=== PATIENT | male | born 1970 | race Caucasian/White ===

== ENCOUNTER → 2024-01-29 | Outpatient (CLI) | payer BC ==
--- NOTE | 2024-02-26 10:21 | MR ---
Site ID synapse default Patient Gaudencio Burns ID [id number] Age/Gender: 53Y, M Order # N/A Procedure MRI CSPINE WO CONTRAST Date 01/29/2024 8:48:24 AM EXAMINATION TYPE: MR cervical spine wo con DATE OF EXAM: 02/08/2024 COMPARISON: None HISTORY: Headaches, numbness/tingling in hands TECHNIQUE: Multiplanar, multisequence images of the cervical spine were acquired without contrast. FINDINGS: Alignment: The cervical vertebral bodies have preserved heights. Straightening of the normal cervical lordosis which may be due to patient position versus muscle spasm. No significant spondylolisthesis. Bones: Type II Modic changes involving the inferior endplate of the C6 vertebral body. Remaining bone signal is within normal limits. Multilevel degenerative disc disease is noted. Cord: The spinal cord is unremarkable with regards to their signal intensity and morphology. Discs: Multilevel disc desiccation is present. C2-C3: No significant disc pathology. The spinal canal is patent. Left facet arthropathy resulting i n mild to moderate left neural foraminal stenosis. The right neural foramen is patent. C3-C4: Broad-based disc bulge with mild central canal stenosis. Uncovertebral joint hypertrophy with mild bilateral neural foraminal stenosis. C4-C5: Broad-based disc bulge without significant central canal stenosis. No neural foraminal stenos is. C5-C6: Broad-based disc bulge with minimal central canal stenosis. Uncovertebral joint hypertrophy an d facet arthropathy results in mild right and [id number]-lmeltrtt left neural foraminal stenosis. C6-C7: Eccentric left disc bulge with minimal central canal stenosis. Uncovertebral degenerative hyp ertrophy. Right neural foramen is patent. Moderate left neural foraminal stenosis secondary to disc b ulge. C7-T1: No significant disc pathology. The spinal canal is patent. No neural foraminal stenosis. Other: None. IMPRESSION: Multilevel disc degeneration with associated osteoarthritic changes as described above. No evidence o f disc herniation. Disc bulge at C3-C4 causing mild central canal stenosis. Varying degrees of neural foraminal stenosis as described above.
== END | disposition home or self-care (01) ==
LOC: RADMRIMAIN 09:30
PROVIDERS: ATTEND Family Medicine
DX: M50.31 Other cervical disc degeneration, high cervical region (principal); M50.121 Cervical disc disorder at C4-C5 level with radiculopathy; M99.71 Connective tissue and disc stenosis of intervertebral foramina of cervical region
CPT/HCPCS: 72141